=== PATIENT | male | born 1940 | race Hispanic/Latino ===

== ENCOUNTER 2017-06-05 13:12 | Outpatient (CLI) | payer MEDICARE, BC ==
[2017-06-05 13:28] VITALS: BMI 24.5
== END 2017-06-05 13:13 | disposition home or self-care (01) ==
LOC: MWLC DTY 13:12
PROVIDERS: ATTEND Internal Medicine Geriatric Medicine
DX: E11.65 Type 2 diabetes mellitus with hyperglycemia (principal)
CPT/HCPCS: 97802

== ENCOUNTER 2017-06-06 06:08 | Emergency (ER) | payer MEDICARE, BC ==
[2017-06-06] MEDS ORDERED: Lidocaine 1% w/Epinephrine 1:100K 20 ML VIAL ONE (06:43)
[2017-06-06 07:05] LABS: #Basophils 0.1 thou/uL (0.0-0.2); #Eosinphils 0.1 thou/uL (0.0-0.7); #Lymphocytes 3.3 thou/uL (1.20-3.40); #Monocytes 0.6 thou/uL (0.11-0.59); #Neutrophils 6.7 thou/uL (1.40-6.50); %Basophils 0.6 % (0.0-1.0); %Eosinophils 0.5 % (0.0-10.0); %Lymphocytes 30.7 % (21.0-51.0); %Monocytes 5.5 % (0.0-10.0); Hematocrit 39.8 % (42.0-52.0); Mean Platelet Volume 6.8 fL (7.4-10.4); Red Blood Cell (RBC) Count 4.36 mill/uL (4.70-6.10); White Blood Cell (WBC) Count 10.6 thou/uL (4.8-10.8)
[2017-06-06 07:37] LABS: ALT (SGPT) 38 U/L (8-55); AST (SGOT) 40 U/L (5-34); Alkaline Phosphatase 76 U/L (40-150); Anion Gap 14 mmol/L (10-20); BUN (Urea Nitrogen) 39 mg/dL (8.4-25.7); Bilirubin, Total 0.7 mg/dL (0.2-1.2); Calc. Creatinine Clearance 0 mL/min (70-130); Calcium 9.1 mg/dL (7.8-10.44); Carbon Dioxide 24 mmol/L (23-31); Chloride 101 mmol/L (98-107); Estimated GFR-MDRD 45; Globulin 2.8 g/dL (2.4-3.5); Protein, Total 6.9 g/dL (5.8-8.1)
[2017-06-06 07:42] LABS: Troponin I 0.012 ng/mL (< 0.028)
== END 2017-06-06 08:25 | disposition home or self-care (01) ==
LOC: ERS 06:08
DX: S01.111A Laceration without foreign body of right eyelid and periocular area, initial encounter (principal); R55 Syncope and collapse; E11.9 Type 2 diabetes mellitus without complications; E78.5 Hyperlipidemia, unspecified; I10 Essential (primary) hypertension; Z79.4 Long term (current) use of insulin; Z79.82 Long term (current) use of aspirin; Z79.899 Other long term (current) drug therapy; W01.10XA Fall on same level from slipping, tripping and stumbling with subsequent striking against unspecified object, initial encounter
CPT/HCPCS: 12013; 36415; 36416; 80053; 82553; 84484; 85025; 93005; J2001

== ENCOUNTER 2017-06-28 08:00 | Outpatient (CLI) | payer MEDICARE, BC | END 2017-06-28 08:01 | disposition home or self-care (01) | LOC: BICULT 08:00 | PROVIDERS: ATTEND Internal Medicine Geriatric Medicine | DX: R55 Syncope and collapse (principal) | CPT/HCPCS: 93880 ==

== ENCOUNTER 2020-12-08 08:31 | Outpatient (CLI) | payer MEDICARE, BC | END 2020-12-08 08:32 | disposition home or self-care (01) | LOC: BICULT 08:31 | PROVIDERS: ATTEND Family Medicine | DX: N18.4 Chronic kidney disease, stage 4 (severe) (principal) | CPT/HCPCS: 76770; 93975 ==

== ENCOUNTER 2021-11-08 09:01 | Outpatient (CLI) | payer MEDICARE, BC | END 2021-11-08 09:02 | disposition home or self-care (01) | LOC: BICRAD 09:01 | PROVIDERS: ATTEND Family Medicine | DX: M54.50 Low back pain, unspecified (principal); M47.816 Spondylosis without myelopathy or radiculopathy, lumbar region | CPT/HCPCS: 72100 ==

== ENCOUNTER 2021-11-16 18:20 | Emergency (ER) | payer MEDICARE, BC ==
[2021-11-16] MEDS ORDERED: Acetaminophen 500 MG TAB ONE (19:57)
== END 2021-11-16 22:11 | disposition home or self-care (01) ==
LOC: ERS 18:20
DX: M25.561 Pain in right knee (principal); E11.9 Type 2 diabetes mellitus without complications; I10 Essential (primary) hypertension; E78.5 Hyperlipidemia, unspecified; M79.604 Pain in right leg

== ENCOUNTER 2022-01-15 17:45 | Observation (INO) | payer MEDICARE, BC ==
[2022-01-15 18:41] LABS: ALT (SGPT) 15 U/L (8-55); AST (SGOT) 30 U/L (5-34); Albumin 3.1 g/dL (3.4-4.8); Alkaline Phosphatase 60 U/L (40-110); Anion Gap 15 mmol/L (10-20); BUN (Urea Nitrogen) 37 mg/dL (8.4-25.7); Bilirubin, Total 0.3 mg/dL (0.2-1.2); Calc. Creatinine Clearance 0 mL/min (70-130); Calcium 8.1 mg/dL (7.8-10.44); Carbon Dioxide 22 mmol/L (23-31); Chloride 103 mmol/L (98-107); Estimated GFR 15; Globulin 2.8 g/dL (2.4-3.5); Glucose 118 mg/dL (83-110); Potassium 3.6 mmol/L (3.5-5.1); Protein, Total 5.9 g/dL (5.8-8.1); Sodium 136 mmol/L (136-145)
[2022-01-15 18:51] LABS: Hemoglobin 8.9 g/dL (14.0-18.0); Mean Corpuscular Hemoglobin 30.4 pg (27.0-31.0); Mean Corpuscular Volume 93.6 fL (78.0-98.0); Red Blood Cell (RBC) Count 2.92 mill/uL (4.70-6.10); White Blood Cell (WBC) Count 15.9 thou/uL (4.8-10.8)
[2022-01-15 18:52] LABS: %Eosinophils 0.6 % (0.0-10.0); %Lymphocytes 16.5 % (21.0-51.0); %Neutrophils 76.9 % (42.0-75.0); Mean Corpuscular HGB CONC 32.4 g/dL (32.0-36.0); Mean Platelet Volume 6.4 fL (7.4-10.4); Platelet Count 343 thou/uL (130-400); RBC Distribution Width 12.6 % (11.5-14.5)
[2022-01-15 18:59] LABS: Bacteria/HPF None Seen HPF (None Seen); Bilirubin Negative (Negative); Blood, Urine Negative (Negative); Clarity Clear (Clear); Glucose, Urine (Dipstick) 70 mg/dL (Negative); Ketone, Urine Negative (Negative); Leukocyte Negative Leu/uL (Negative); Nitrite Negative (Negative); Protein, Urine (Dipstick) 300 mg/dL (Neg-Trace); RBC/HPF 0-3 HPF (0-3); Specific Gravity, Urine 1.012 (1.002-1.036); Squamous Epithelial None Seen HPF (0-3); Urobilinogen Normal mg/dL (Less than 2); WBC/HPF 0-3 HPF (0-3)
[2022-01-15 21:06] LABS: #Eosinphils 0.1 thou/uL (0.0-0.7); #Lymphocytes 2.6 thou/uL (1.20-3.40); #Neutrophils 12.2 thou/uL (1.40-6.50)
[2022-01-15] MEDS ORDERED: Sodium Chloride 77 MEQ in Dextrose 10% in Water 1,000 ML IV SCH (22:00)
[2022-01-15] MEDS ORDERED: Acetaminophen 500 MG TAB ONE (22:27)
[2022-01-16] MEDS ORDERED: Morphine 4 MG/ML VIAL SLOW IVP PRN (03:58)
[2022-01-16 09:03] LABS: SARS-CoV-2 NAA Rapid Test Not Detected (NotDetected)
[2022-01-16] MEDS ORDERED: Acetaminophen 325 MG TAB PO PRN (12:48)
[2022-01-16] MEDS ORDERED: HumaLOG 300 UNITS/3 ML VIAL SC PRN (12:48)
[2022-01-16] MEDS ORDERED: Dextrose 50% Abboject 50 ML SYRINGE SLOW IVP PRN (12:48)
[2022-01-16] MEDS ORDERED: Dextrose 5% in Water 1,000 ML IV PRN (12:48)
[2022-01-16 14:28] VITALS: BMI 23.3
[2022-01-16 14:30] LABS: Anion Gap 11 mmol/L (10-20); BUN (Urea Nitrogen) 33 mg/dL (8.4-25.7); Calc. Creatinine Clearance 14 mL/min (70-130); Calcium 7.9 mg/dL (7.8-10.44); Carbon Dioxide 23 mmol/L (23-31); Chloride 102 mmol/L (98-107); Estimated GFR 17; Glucose 189 mg/dL (83-110); Potassium 4.2 mmol/L (3.5-5.1); Sodium 132 mmol/L (136-145)
[2022-01-16] MEDS: hydrALAZINE 25 MG TAB PO SCH ×2 (16:18→20:03)
[2022-01-16] MEDS ORDERED: Labetalol HCl 100 MG/20 ML VIAL SLOW IVP PRN (16:36)
[2022-01-16] MEDS ORDERED: Amlodipine 5 MG TAB PO SCH (17:30)
[2022-01-16] MEDS: Lactated Ringer's 1,000 ML IV SCH (20:03)
[2022-01-16] MEDS ORDERED: Colchicine 0.6 MG TAB PO SCH (21:00)
[2022-01-16] MEDS ORDERED: Rosuvastatin 10 MG TAB PO SCH (21:00)
[2022-01-16] MEDS ORDERED: Indomethacin 25 mg Capsule PO SCH (21:00)
[2022-01-17 04:58] LABS: Anion Gap 10 mmol/L (10-20); BUN (Urea Nitrogen) 38 mg/dL (8.4-25.7); Calc. Creatinine Clearance 14 mL/min (70-130); Calcium 7.5 mg/dL (7.8-10.44); Carbon Dioxide 24 mmol/L (23-31); Chloride 102 mmol/L (98-107); Estimated GFR 16; Glucose 151 mg/dL (83-110); Potassium 4.2 mmol/L (3.5-5.1); Sodium 132 mmol/L (136-145)
[2022-01-17 05:02] LABS: Hemoglobin 7.7 g/dL (14.0-18.0); Mean Corpuscular HGB CONC 33.4 g/dL (32.0-36.0); Mean Corpuscular Hemoglobin 30.8 pg (27.0-31.0); Mean Corpuscular Volume 92.2 fL (78.0-98.0); Mean Platelet Volume 6.5 fL (7.4-10.4); Platelet Count 293 thou/uL (130-400); RBC Distribution Width 12.1 % (11.5-14.5); Red Blood Cell (RBC) Count 2.51 mill/uL (4.70-6.10); White Blood Cell (WBC) Count 9.1 thou/uL (4.8-10.8)
[2022-01-17 08:00] VITALS: TEMP 97.8
[2022-01-17] MEDS ORDERED: Amlodipine 5 MG TAB PO SCH (09:00)
[2022-01-17] MEDS ORDERED: Calcitriol 0.25 MCG CAP PO SCH ×2 (09:00)
[2022-01-17] MEDS ORDERED: Enoxaparin Sodium 30 MG/0.3 ML SYRINGE SC SCH (09:00)
[2022-01-17] MEDS ORDERED: FENOFIBRATE 120 MG PO SCH (09:00)
[2022-01-17] MEDS: hydrALAZINE 25 MG TAB PO SCH (09:19)
[2022-01-17] MEDS: Lactated Ringer's 1,000 ML IV SCH (09:58)
[2022-01-17 11:19] VITALS: BP 152/67
== END 2022-01-17 10:52 | disposition home or self-care (01) ==
LOC: ERS 17:45 → INTOOBSV 22:32 → ERHOLD 22:32 → 2SW 01-16 13:22
PROVIDERS: ADMIT Internal Medicine; ATTEND Internal Medicine
DX: E11.649 Type 2 diabetes mellitus with hypoglycemia without coma (principal); I12.9 Hypertensive chronic kidney disease with stage 1 through stage 4 chronic kidney disease, or unspecified chronic kidney disease; E11.22 Type 2 diabetes mellitus with diabetic chronic kidney disease; N18.9 Chronic kidney disease, unspecified; M10.9 Gout, unspecified; E78.1 Pure hyperglyceridemia; Z79.4 Long term (current) use of insulin; Z79.84 Long term (current) use of oral hypoglycemic drugs; Z79.899 Other long term (current) drug therapy; Z20.822 Contact with and (suspected) exposure to COVID-19; D72.829 Elevated white blood cell count, unspecified
CPT/HCPCS: 0240U; 71045; 80048 ×2; 80053; 82962 ×3; 84550; 85025 ×2; 85027; 87040; 93005; 99285; 36415; 36416; 81003; 81015; J1650; J7120

== ENCOUNTER 2022-05-18 09:52 | Emergency (ER) | payer MEDICARE, BC | END 2022-05-18 13:22 | disposition home or self-care (01) | LOC: ERS 09:52 | DX: Z76.0 Encounter for issue of repeat prescription (principal); E11.9 Type 2 diabetes mellitus without complications; Z79.4 Long term (current) use of insulin | CPT/HCPCS: 99281 ==

== ENCOUNTER 2022-06-30 10:48 | Outpatient (CLI) | payer MEDICARE, BC | END 2022-06-30 10:49 | disposition home or self-care (01) | LOC: BICULT 10:48 | PROVIDERS: ATTEND Specialist | DX: N18.6 End stage renal disease (principal) | CPT/HCPCS: 93970 ==

== ENCOUNTER 2022-07-05 08:38 | Day surgery (SDC) | payer MEDICARE, BC ==
[2022-07-04 09:51] VITALS: BMI 22.8
[2022-07-05 09:58] LABS: #Eosinphils 0.2 thou/uL (0.0-0.7); #Lymphocytes 1.5 thou/uL (1.20-3.40); #Monocytes 0.5 thou/uL (0.11-0.59); #Neutrophils 4.8 thou/uL (1.40-6.50); %Basophils 0.3 % (0.0-1.0); %Eosinophils 2.4 % (0.0-10.0); %Lymphocytes 21.6 % (21.0-51.0); %Monocytes 6.8 % (0.0-10.0); %Neutrophils 68.9 % (42.0-75.0); Hemoglobin 8.9 g/dL (14.0-18.0); Mean Corpuscular HGB CONC 33.9 g/dL (32.0-36.0); Mean Corpuscular Volume 91.5 fl (78.0-98.0); Mean Platelet Volume 6.6 fL (7.4-10.4); Platelet Count 289 10x3/uL (130-400); RBC Distribution Width 12.1 % (11.5-14.5); Red Blood Cell (RBC) Count 2.86 mill/uL (4.70-6.10)
[2022-07-05 10:11] LABS: Anion Gap 15 mmol/L (10-20); BUN (Urea Nitrogen) 42 mg/dL (8.4-25.7); Calc. Creatinine Clearance 10 mL/min (70-130); Calcium 8.3 mg/dL (7.8-10.44); Carbon Dioxide 21 mmol/L (23-31); Chloride 107 mmol/L (98-107); Estimated GFR 11; Glucose 116 mg/dL (83-110); Potassium 4.6 mmol/L (3.5-5.1); Sodium 138 mmol/L (136-145)
[2022-07-05] MEDS ORDERED: Fentanyl 100 MCG/2 ML VIAL ONE (10:43)
[2022-07-05] MEDS ORDERED: Heparin 5,000 UNITS/ML VIAL ONE (10:51)
[2022-07-05] MEDS ORDERED: Bupivacaine HCl 0.5%/Epinephrine 1:200,000/PF 30 ml Vial ONE (10:51)
[2022-07-05] MEDS ORDERED: Protamine Sulfate 50 MG/5 ML VIAL ONE (10:51)
[2022-07-05] MEDS ORDERED: Midazolam HCl 2 mg/2 ml Vial ONE (10:53)
[2022-07-05] MEDS ORDERED: Lidocaine 2% PF 5 ML VIAL ONE (10:55)
[2022-07-05] MEDS ORDERED: CEFAZOLIN 2 GM VIAL ONE (11:05)
[2022-07-05] MEDS ORDERED: Sodium Chloride 0.9% 100 ML ONE (11:05)
== END 2022-07-05 13:02 | disposition home or self-care (01) ==
LOC: SDC 08:38
PROVIDERS: ATTEND Specialist
PROC: 031C0ZF Bypass Left Radial Artery to Lower Arm Vein, Open Approach (ICD-10-PCS; principal; 2022-07-05)
DX: I12.0 Hypertensive chronic kidney disease with stage 5 chronic kidney disease or end stage renal disease (principal); E11.22 Type 2 diabetes mellitus with diabetic chronic kidney disease; N18.6 End stage renal disease; N52.9 Male erectile dysfunction, unspecified; E78.1 Pure hyperglyceridemia; Z87.891 Personal history of nicotine dependence; Z79.4 Long term (current) use of insulin; Z79.82 Long term (current) use of aspirin; Z79.899 Other long term (current) drug therapy
CPT/HCPCS: 80048; 85025; C1776; J1644; J2001; J2250; J2720; J3010; J3490

== ENCOUNTER 2022-10-30 09:13 | Outpatient (CLI) | payer MEDICARE, BC | END 2022-10-30 09:14 | disposition home or self-care (01) | LOC: RAD 09:13 | PROVIDERS: ATTEND Internal Medicine Nephrology | DX: N18.5 Chronic kidney disease, stage 5 (principal) | CPT/HCPCS: 36415; 71046; 80048; 85025; 86704; 86706; 86803; 87340 ==

== ENCOUNTER 2023-06-28 14:43 | Outpatient (CLI) | payer MEDICARE | END 2023-06-28 14:44 | disposition home or self-care (01) | LOC: BICRAD 14:43 | PROVIDERS: ATTEND Internal Medicine Nephrology | DX: T85.611A Breakdown (mechanical) of intraperitoneal dialysis catheter, initial encounter (principal); R91.8 Other nonspecific abnormal finding of lung field | CPT/HCPCS: 74018 ==

== ENCOUNTER 2023-08-27 11:28 | Outpatient (CLI) | payer MEDICARE, BC | END 2023-08-27 11:29 | disposition home or self-care (01) | LOC: BICRAD 11:28 | PROVIDERS: ATTEND Internal Medicine Nephrology | DX: R11.2 Nausea with vomiting, unspecified (principal) | CPT/HCPCS: 74018 ==